=== PATIENT | female | born 1995 | race Caucasian/White ===

== ENCOUNTER 2016-10-14 13:41 | Emergency (ER) | payer SELFPAY ==
[2016-10-14 13:47] VITALS: BP 103/60; BMI 23.6
[2016-10-14 15:34] LABS: BILIRUBIN,URINE NEGATIVE (NEGATIVE); BLOOD/HEMOGLOBIN,URINE NEGATIVE (NEGATIVE); GLUCOSE, URINE NEGATIVE (NEGATIVE); KETONES,URINE NEGATIVE (NEGATIVE); LEUKOCYTE ESTERASE ,URINE 3+ (NEGATIVE); NITRITES,URINE NEGATIVE (NEGATIVE); PROTEIN,URINE NEGATIVE (NEGATIVE); UROBILINOGEN,URINE NORMAL (NORMAL)
[2016-10-14 15:38] LABS: APPEARANCE,URINE HAZY (CLEAR); BACTERIA,URINE TRACE /HPF (NEGATIVE); COLOR,URINE YELLOW (YELLOW); RBC,URINE 0-2 /HPF (NEGATIVE); SQUAMOUS EPITHELIAL CELL,UR FEW /HPF (NEGATIVE)
--- NOTE | 2016-10-14 16:07 | DR.GENAD ---
HPI - PCP Primary Care Physician: NFD - Complaint/Symptoms Chief Complaint Doctors Comments: Patient complains or right lower abdominal pressure for the past 24 hours with the pain worst when she raise her right leg. states onset of pain when she was riding the bus. She just moved her and she does not have a local doctor. states she is 15 weeks and this is her third . she denies dysuria or hematuria. She denies vaginal discharge or bleeding. she denies any recent trauma. states she only took her vitamins and has not had anything for pain. Chief Complaint:: PT C/O RLQ PAIN THAT STARTED YESTERDAY. PT IS NOTED TO BE 15.5 WKS . PT STATES SHE JUST MOVED DOWN HERE AND DOES NOT HAVE A OBGYN OF NOW. - Source History Provided: Patient - Mode of Arrival Mode of Arrival: Ambulatory - Timing Onset of Chief Complaint: 10/13/16 PMH - PMH Past Medical History: Yes Past Medical History: Depression Past Medical History Comment: HIGH RISH PREGNANCIES Past Surgical History: Yes Past Surgical History Comment: DNC - Family History History of Family Medical Conditions: No - Social History Does patient currently use any type of tobacco product: Yes Have you used tobacco products in the last 12 months: Yes Type of Tobacco Use: Cigarettes Does any household member use tobacco: Yes Alcohol Use: None Do you use any recreational Drugs:: No Lives With: Family Lives Where: Home - infectious screening In the last 2 months have you had wt loss of >10#?: NO Have you had fever, night sweats or hemotysis?: No Have you traveled outside the country in the last 6 months?: No Isolation: Standard ROS - Review of Systems Constitutional: No Symptoms Reported. negative: See HPI, Chills, Diaphoresis, Fever, Malaise, Weakness, Irritable, Fatigue, Loss of Appetite, Other Eyes: No Symptoms Reported ENTM: No Symptoms Reported. negative: See HPI, Ear Pain, Ear Discharge, Pulling on Ears, Hearing Loss, Nose Pain, Nose Discharge, Epistaxis, Nose Congestion, Mouth Pain, Mouth Swelling, Loose Teeth, Drooling, Throat Pain, Throat Swelling, Ear Foreign Body Respiratoy: No Symptoms Reported. negative: See HPI, Productive Cough, Non- Productive Cough, Moist Cough, Dry Cough, Hacking Cough, Barking Cough, Brassy Cough, Orthopnea, Short of Breath, Stridor, Wheezing, Hemoptysis, Other Cardiovascular: No Symptoms Reported. negative: See HPI, Chest Pain, Edema, Palpitations, Syncope, Cyanosis, Skin Mottling, Other Gastrointestinal/Abdominal: No Symptoms Reported, Abdominal Pain. negative: See HPI, Constipation, Diarrhea, Nausea, Vomiting, Food Intolerance, Other Genitourinary: No Symptoms Reported. negative: See HPI, Discharge, Dysuria, Frequency, Hematuria, Pain, Bleeding, Other Neurological: No Symptoms Reported Musculoskeletal: No Symptoms Reported Integumentary: No Symptoms Reported Hematologic/Lymphatic: No Symptoms Reported Endocrine: No Symptoms Reported Psychiatric: No Symptoms Reported PE - Vital Signs Vitals: Temperature 98.2 F Pulse Rate 82 Respiratory Rate 20 Blood Pressure 103/60 O2 Sat by Pulse Oximetry 98 - General Limitations: No Limitations General Appearance: Alert, In No Apparent Distress - Head Head Exam: Normal Inspection, Atraumatic, Normocephalic - Eyes Eye exam: Normal Appearance, PERRL, EOMI. negative: Scleral Icterus, Conjunctival Injection, Nystagmus, Miosis, Mydrasis, Periorbital Swelling, Periorbital Tenderness, Other - ENT ENT Exam: Normal Exam, Normal Oropharynx, Normal External Ear Exam, Mucous Membranes Moist, TM's Normal Bilaterally External Ear Exam: Normal External Inspection TM/Canal Exam: Bilateral Normal Nose Exam: Normal Nose Exam Mouth Exam: Normal Inspection Throat Exam: Normal Inspection - Neck Neck Exam: Normal Inspection, Full ROM, Trachea Midline. negative: Tenderness, Meningismus, Lymphadenopathy, Thyromegaly, Other - Chest Chest Inspection: Normal Inspection, Symmetric Chest Wall Rise. negative: Tenderness, Rash, Abscess, Other - Respiratory Respiratory Exam: Normal Lung Sounds Bilat Respiratory Exam: Bilateral Clear to Auscultation - Cardiovascular Cardiovascular Exam: Regular Rate, Normal Rhythm, Normal Heart Sounds. negative : Bradycardia, Tachycardia, Irregular Rhythm, Systolic Murmur, Diastolic Murmur , Rubs, Gallop, Clicks, JVD, +S1, +S2, +S3, +S4, Other - Abdominal Exam Abdominal Exam: Normal Inspection, Normal Bowel Sounds, Soft. negative: Distention, Tenderness, Guarding, Rebound, Rigidity, Dimnished Bowel Sounds, Hyperactive Bowel Sounds, Hypoactive Bowel Sounds, Organomegaly, Trauma, Incision, Ascites, Mass, Bruit, Pulsatile Mass, Hernia, Other Abdominal Tenderness: negative: RUQ, RLQ, LUQ, LLQ, Epigastrium, Suprapubic, Diffuse, Mild, Moderate, Severe, Other - Extremities Extremities Exam: Normal Inspection, Full ROM, Normal Capillary Refill. negative: Tenderness, Edema, Joint Swelling, Calf Tenderness, Other - Back Back Exam: Normal Inspection, Full ROM - Neurologic Neurological Exam: Alert, Oriented X3, CN II-XII Intact, Normal Gait, Reflexes Normal - Psychiatric Psychiatric Exam: Normal Affect, Normal Mood. negative: Depressed, Agitated, Anxious, Flat Affect, Manic, Homicidal Ideation, Suicidal Ideation, Other - Skin Skin Exam: Warm, Dry, Intact, Normal Color. negative: Rash, Cyanosis, Diaphoresis, Erythema, Pallor, Mottled, Other ROR - Labs Reviewed Laboratory Results Reviewed?: Yes (all labs results reviewed and discussed with patient) Laboratory: Specimen Type Clean catch urine 10/14/16 15:24 Urine Color Yellow (YELLOW) 10/14/16 15:24 Urine Appearance Hazy (CLEAR) 10/14/16 15:24 Urine pH 7.0 (5.0 - 8.0) 10/14/16 15:24 Ur Specific [place] 1.010 (1.000-1.030) 10/14/16 15:24 Urine Protein Negative (NEGATIVE) 10/14/16 15:24 Urine Glucose (UA) Negative (NEGATIVE) 10/14/16 15:24 Urine Ketones Negative (NEGATIVE) 10/14/16 15:24 Urine Occult Blood Negative (NEGATIVE) 10/14/16 15:24 Urine Nitrite Negative (NEGATIVE) 10/14/16 15:24 Urine Bilirubin Negative (NEGATIVE) 10/14/16 15:24 Urine Urobilinogen Normal (NORMAL) 10/14/16 15:24 Ur Leukocyte Esterase 3+ (NEGATIVE) 10/14/16 15:24 Urine RBC 0-2 /HPF (NEGATIVE) 10/14/16 15:24 Urine WBC 6-10 /HPF (NEGATIVE) 10/14/16 15:24 Ur Squamous Epith Cells Few /HPF (NEGATIVE) 10/14/16 15:24 Urine Bacteria Trace /HPF (NEGATIVE) 10/14/16 15:24 Ur Culture Indicated? No/not indicated 10/14/16 15:24 - Diagnosis Discharge Problem: Abdominal pain during , Urinary tract infection, Myalgia - Discharge Plan Disposition: HOME, SELF-CARE Condition: Stable Prescriptions: Amoxicillin 500 mg PO TID #30 cap - Follow ups/Referrals Follow ups/Referrals: NFD,None [Primary Care Provider] - 3 days KIMBERLY CEVALLOS [STAFF PHYSICIAN] - 3 days - Instructions Instructions: Urinary Tract Infection, Adult, and Urinary Tract Infection, Abdominal Pain During , [id number]
[2016-10-14] MEDS ORDERED: TYLENOL 500 MG TAB EXTRA STRENGTH PO STA (16:23)
[2016-10-14] MEDS ORDERED: AUGMENTIN 500 MG/125 MG TAB PO ONE ×2 (16:24→16:46)
[2016-10-14] MEDS ORDERED: TYLENOL 500 MG TAB EXTRA STRENGTH PO ONE (16:46)
== END 2016-10-14 16:51 | disposition home or self-care (01) ==
LOC: ER 14:11
DX: R10.31 Right lower quadrant pain (principal); Z3A.15 15 weeks gestation of pregnancy; N39.0 Urinary tract infection, site not specified; M79.1 Myalgia
CPT/HCPCS: 81001; 99283; 99284

== ENCOUNTER → 2016-11-17 | Outpatient (CLI) | payer OTHER ==
--- NOTE | 2016-11-20 08:55 | US ---
HISTORY: age Study: OB ultrasound greater than 14 weeks Comparison: None Technique: Multiple grayscale and color flow Doppler images of the pelvis were obtained with focused evaluation of the fetus. Findings: A viable single intrauterine is identified with heart tones of 146 beats per minute. A cephalic presentation is observed with a anterior and fundal placenta. Normal amniotic fluid volu me is observed . Evaluation of the anatomy including the stomach, , urinary bladder, and four-c hamber heart are unremarkable. The kidneys are not well visualized. The extremities and spine are nor mal in their sonographic appearance. A three-vessel cord is observed. There is questionable hydroce phalus which is difficult to further characterize due to the positioning of the fetus. Value Estimated Gestational Age BPD 47.7 mm 20 weeks 3 days HC 179.4 mm 20 weeks 3 days AC 149mm 20 weeks 2 days FL 32 mm 20 weeks 2 days IMPRESSION: Single viable intrauterine with an average ultrasound age of 20 weeks 3 days correspond to an estimated date of delivery of 04/03/2017. Slightly limited exam due to the fetus positioning with questionable hydrocephalus. Recommend a follo w-up ultrasound for further characterization of the cranium. Reported By:
== END ==
LOC: RAD 11:22
PROVIDERS: ATTEND Obstetrics & Gynecology Obstetrics
DX: Z34.92 Encounter for supervision of normal pregnancy, unspecified, second trimester (principal); Z3A.20 20 weeks gestation of pregnancy

== ENCOUNTER 2016-11-30 10:38 | Emergency (ER) | payer OTHER ==
[2016-11-30 10:42] VITALS: BP 101/61; BMI 25.7
--- NOTE | 2016-11-30 11:16 | DR.EXTPAIN ---
HPI - Time seen Time seen: 11:15 - PCP Primary Care Physician: JEMAL - HPI Comment HPI Comment: PAIN WITH MOVEMENT OF LLE. BEAR WEIGHT WITH DISCOMFORT. - Complaint/Symptoms Chief Complaint Doctor Comments: LEFT HIP PAIN, INJURY YESTERDAY PLAYING BASKET BALL. PAIN SEVERE IN LEFT GROIN AREA. NO VAGINAL BLEEDING. MOM HAVE CONTINUE TO FEEL MOVEMENT. Chief Complaint:: PT. STATES SHE WAS PLAYING BASKETBALL YESTERDAY AND HURT HER LEFT HIP. PT. C/O PAIN SINCE THEN. PT. IS 22 WEEKS . . EDC: 04/01/17 - Nurses notes reviewed Nurses Notes Review: Yes - Source History Provided: Patient - Mode of arrival Mode of Arrival: Ambulatory - Timing Onset of Chief Complaint: 11/29/16 - Context History of: None - Associated signs and symptoms Associated Signs and Symptoms: Pain PMH - PMH Past Medical History: No Past Medical History: Depression Past Surgical History: No Surgical History: No History - Family History History of Family Medical Conditions: No - Social History Does patient currently use any type of tobacco product: Yes Have you used tobacco products in the last 12 months: Yes Type of Tobacco Use: Cigarettes Does any household member use tobacco: Yes Alcohol Use: None Do you use any recreational Drugs:: No Lives With: Family, Significant Other Lives Where: Home - infectious screening In the last 2 months have you had wt loss of >10#?: NO Have you had fever, night sweats or hemotysis?: No Have you traveled outside the country in the last 6 months?: No Isolation: Standard ROS - Review of Systems Constitutional: No Symptoms Reported Eyes: No Symptoms Reported ENTM: No Symptoms Reported Respiratoy: No Symptoms Reported Cardiovascular: No Symptoms Reported Gastrointestinal/Abdominal: No Symptoms Reported Genitourinary: No Symptoms Reported Neurological: No Symptoms Reported Musculoskeletal: Left, Leg (PAIN LT HIP), Other (LT GROIN PAIN) Integumentary: No Symptoms Reported Hematologic/Lymphatic: No Symptoms Reported Endocrine: No Symptoms Reported All Other Systems: Reviewed and Negative PE - Vital Signs Vitals: Temperature 98.0 F Pulse Rate 95 Respiratory Rate 17 Blood Pressure 101/61 O2 Sat by Pulse Oximetry 98 - General Limitations: No Limitations General Appearance: Alert - Head Head Exam: Normal Inspection - Eyes Eye exam: Normal Appearance - ENT ENT Exam: Normal External Ear Exam - Neck Neck Exam: Normal Inspection - Chest Chest Inspection: Symmetric Chest Wall Rise - Respiratory Respiratory Exam: Normal Lung Sounds Bilat Respiratory Exam: Bilateral Clear to Auscultation - Cardiovascular Cardiovascular Exam: Regular Rate, Normal Rhythm, Normal Heart Sounds - Abdominal Exam Abdominal Exam: Normal Bowel Sounds, Soft, Tenderness Abdominal Tenderness: Other (LT GROIN) - Extremities Extremities Exam: Tenderness (TENDER LT HIP AND GROIN) - Lower Extremities Neurovascular/Tendon Exam: Normal Capillary Refill Gait Exam: Observed & Limited by Pain - Back Back Exam: Normal Inspection - Neurological Neurological Exam: Alert, Oriented X3 - Psychiatric Psychiatric Exam: Normal Affect, Normal Mood - Skin Skin Exam: Normal Color MDM - Differential Diagnosis Differential Diagnosis: Contusion, Sprain (PLACENTA INJURY) Course - Treatment Treatment: SEE ORDERS. - Education/Counseling Education/Counseling: Patient, Family, Education Educated On: Diagnosis ROR - XRAY XRAY Interpreted by: Radiologist XRAY Findings: REPORT DISCUSS WITH PATIENT. - Diagnosis Discharge Problem: Left hip pain - Discharge Plan Disposition: 01 HOME, SELF-CARE Condition: Stable Prescriptions: Acetaminophen [Tylenol 325 mg Tab] 650 mg PO Q4H PRN #30 tab PRN Reason: Mild Pain - Follow ups/Referrals Follow ups/Referrals: MARY JO JOAQUIN [Primary Care Provider] - 12/01/16 - Instructions Instructions: Musculoskeletal Pain Additional Instructions: RETURN TO ED IF WORSE.
--- NOTE | 2016-11-30 12:54 | US ---
HISTORY: Pain, Study: OB ultrasound greater than 14 weeks Comparison: 11/17/2016 Technique: Multiple grayscale and color flow Doppler images of the pelvis were obtained with focused evaluation of the fetus. Findings: A viable single intrauterine is identified with heart tones of 159 beats per minute. A breech presentation is observed with a anterior and fundal placenta. No evidence of hydrocephalus is seen on the examination today. Normal amniotic fluid volume is observed . Value Estimated Gestational Age BPD 48 mm 20 weeks 4 days HC 185.1 mm 20 weeks 6 days AC 170 mm 22 weeks 0 days FL 36.6 mm 21 weeks 4 days The estimated weight is 442 g, which is within the 66 percentile. IMPRESSION: A viable single intrauterine with an average ultrasound age of 21 weeks 2 days correspond t o an estimated date of delivery of 04/10/2017.. No evidence of hydrocephalus is seen. Reported By:
[2016-11-30] MEDS ORDERED: TYLENOL 325 MG TAB PO ONE ×2 (13:13→13:19)
== END 2016-11-30 13:25 | disposition home or self-care (01) ==
LOC: ER 10:44
DX: M25.552 Pain in left hip (principal); Z3A.21 21 weeks gestation of pregnancy
CPT/HCPCS: 76815; 99283; 99284

== ENCOUNTER 2017-02-03 14:16 | Emergency (ER) | payer MEDICAID, OTHER ==
[2017-02-03 14:34] VITALS: BP 119/59; BMI 27.6
--- NOTE | 2017-02-03 14:47 | DR.GENAD ---
HPI - PCP Primary Care Physician: JEMAL - HPI Comment HPI Comment: HISTORY BELOW. - Complaint/Symptoms Chief Complaint Doctors Comments: COUGH, COLD AND CONGESTION TIMES 3 DAYS. PAIN UNDER LT RIB WELL. NO FEVER. EXPOSE TO PATIENT WITH STREP INFECTION. PATIENT IS 31 WEEKS . Chief Complaint:: PT C/O COUGHING AND LT RIB PAIN PT STATE THESE SX HAS BEEN GOING ON FOR 3 DAYS. PT STATES SHE HAS BEEN AROUND SOMEONE WITH STREP THROAT. PT IS A 31 6/7 WEEK OB UNDER THE CARE OF DR JOAQUIN. - Nurses notes reviewed Nurses Notes Review: Yes - Source History Provided: Patient - Mode of Arrival Mode of Arrival: Ambulatory - Timing Onset of Chief Complaint: 01/31/17 Came on: Suddenly - Duration Duration: Constant Duration: Days - Severity Severity: Moderate PMH - PMH Past Medical History: Yes Past Medical History: Depression Past Surgical History: No Surgical History: No History - Family History History of Family Medical Conditions: No - Social History Does patient currently use any type of tobacco product: Yes Have you used tobacco products in the last 12 months: Yes Type of Tobacco Use: Cigarettes Does any household member use tobacco: Yes Alcohol Use: None Do you use any recreational Drugs:: No Lives With: Family Lives Where: Home - infectious screening In the last 2 months have you had wt loss of >10#?: NO Have you had fever, night sweats or hemotysis?: No Have you traveled outside the country in the last 6 months?: No Isolation: Standard ROS - Review of Systems Constitutional: No Symptoms Reported Eyes: No Symptoms Reported ENTM: Nose Discharge, Nose Congestion, Throat Pain. negative: Ear Pain Respiratoy: Productive Cough. negative: Short of Breath, Wheezing, Hemoptysis Cardiovascular: No Symptoms Reported Gastrointestinal/Abdominal: No Symptoms Reported Genitourinary: No Symptoms Reported Neurological: No Symptoms Reported Musculoskeletal: No Symptoms Reported Integumentary: No Symptoms Reported Hematologic/Lymphatic: No Symptoms Reported Endocrine: No Symptoms Reported All Other Systems: Reviewed and Negative PE - Vital Signs Vitals: Temperature 97.8 F Pulse Rate 82 Respiratory Rate 18 Blood Pressure 119/59 O2 Sat by Pulse Oximetry 97 - General Limitations: No Limitations General Appearance: Alert - Head Head Exam: Normal Inspection - Eyes Eye exam: Normal Appearance - ENT ENT Exam: Normal External Ear Exam External Ear Exam: Normal External Inspection TM/Canal Exam: Bilateral Normal Nose Exam: Normal Nose Exam Mouth Exam: Normal Inspection Throat Exam: Normal Inspection - Neck Neck Exam: Trachea Midline - Chest Chest Inspection: Symmetric Chest Wall Rise - Respiratory Respiratory Exam: Normal Lung Sounds Bilat Respiratory Exam: Bilateral Clear to Auscultation - Cardiovascular Cardiovascular Exam: Regular Rate, Normal Rhythm, Normal Heart Sounds - Abdominal Exam Abdominal Exam: Normal Bowel Sounds, Soft, Other (FULL TERM PREDNANCY.). negative: Tenderness - Extremities Extremities Exam: Normal Inspection - Back Back Exam: Normal Inspection - Neurologic Neurological Exam: Alert, Oriented X3 - Psychiatric Psychiatric Exam: Normal Affect, Normal Mood - Skin Skin Exam: Normal Color MDM - Additional Information Additional Information Obtained From: Family - Differential Diagnosis Differential Diagnosis: BRONCHITIS, STREP INFECTION, SINUSITIS Course - Treatment Treatment: SEE ORDERS. MONITOR WHILE IN ED. NORMAL. - Education/Counseling Education/Counseling: Patient, Family, Education Educated On: Diagnosis, Needs for Follow Up ROR - Labs Reviewed Laboratory Results Reviewed?: Yes Laboratory: 02/03/17 15:02 Throat Throat Culture - Preliminary Influenza Type A (PCR) Negative (NEGATIVE) 02/03/17 15:30 Influenza Type B (PCR) Negative (NEGATIVE) 02/03/17 15:30 Streptococcus Screen Negative (NEGATIVE) 02/03/17 15:02 - Diagnosis Discharge Problem: Cough, Rib contusion - Discharge Plan Disposition: 01 HOME, SELF-CARE Condition: Stable - Follow ups/Referrals Follow ups/Referrals: MARY JO JOAQUIN [Primary Care Provider] - 3 days - Instructions Instructions: Cough, Adult, [id number], Rib Contusion Additional Instructions: RETURN TO ED IF WORSE. CONTINUE WITH COUGH MED AT HOME.
== END 2017-02-03 16:59 | disposition home or self-care (01) ==
LOC: ER 14:28
DX: S20.219A Contusion of unspecified front wall of thorax, initial encounter (principal); R05 Cough; Z3A.31 31 weeks gestation of pregnancy; Y33.XXXA Other specified events, undetermined intent, initial encounter; Y92.9 Unspecified place or not applicable
CPT/HCPCS: 87070; 87502; 87880; 96372; 99282; 99283

== ENCOUNTER 2017-03-02 22:29 | Emergency (ER) | payer OTHER ==
[2017-03-02 22:38] VITALS: BP 115/61; BMI 27.6
[2017-03-02 22:58] LABS: BILIRUBIN,URINE NEGATIVE (NEGATIVE); BLOOD/HEMOGLOBIN,URINE NEGATIVE (NEGATIVE); GLUCOSE, URINE NEGATIVE (NEGATIVE); KETONES,URINE NEGATIVE (NEGATIVE); LEUKOCYTE ESTERASE ,URINE NEGATIVE (NEGATIVE); NITRITES,URINE NEGATIVE (NEGATIVE); PROTEIN,URINE NEGATIVE (NEGATIVE); UROBILINOGEN,URINE NORMAL (NORMAL)
[2017-03-02 23:24] LABS: APPEARANCE,URINE CLEAR (CLEAR); COLOR,URINE YELLOW (YELLOW)
[2017-03-02 23:25] LABS: BACTERIA,URINE NEGATIVE /HPF (NEGATIVE); RBC,URINE 0-3 /HPF (NEGATIVE); SQUAMOUS EPITHELIAL CELL,UR RARE /HPF (NEGATIVE)
== END 2017-03-02 23:40 | disposition home or self-care (01) ==
LOC: ER 22:29
DX: R10.84 Generalized abdominal pain (principal); Z3A.35 35 weeks gestation of pregnancy
CPT/HCPCS: 81001; 99284

== ENCOUNTER 2017-03-26 06:29 | Inpatient (IN) | payer OTHER ==
[~2017-03-26 06:29] MED LIST: D5LR 1L W PITOCIN 10 UNITS/L 10 UNITS/1,000 ML BAG IV PRN; NUBAIN INJ 200 MG VIAL MULTIDOSE IVP PRN; PITOCIN IVP ONE
[2017-03-26] MEDS ORDERED: D5 1/2 NS 1L W PITOCIN 20 UNITS/L 20 UNITS/1,000 ML BAG IV ONE (06:34)
[2017-03-26] MEDS: D5 1/2 NS 1000 ML 1,000 ML IV SCH (06:45)
[2017-03-26 07:06] LABS: BASOPHILS % (AUTO) 0.4 % (0.2-1.0); EOSINOPHILS # (AUTO) 0.1 x10^3/uL (0.0-0.2); HEMATOCRIT 36.6 % (36.0-47.0); HEMOGLOBIN 13.1 g/dL (12.0-16.0); LYMPHOCYTES # (AUTO) 1.7 X10^3/uL (1.3-2.9); LYMPHOCYTES % (AUTO) 17.9 % (21.0-51.0); MEAN CORPUSCULAR HEMOGLOBIN 30.6 pg (27.0-34.0); MEAN CORPUSCULAR HGB CONC 35.7 g/dL (33.0-35.0); MEAN CORPUSCULAR VOLUME 85.7 fL (80.0-100.0); MEAN PLATELET VOLUME 7.7 fL (7.4-11.0); MONOCYTES % (AUTO) 10.6 % (0.0-13.0); NEUTROPHILS # (AUTO) 6.9 x10^3/uL (2.2-4.8); NEUTROPHILS % (AUTO) 70.1 % (42.0-75.0); PLATELET COUNT 333 X10^3/uL (150.0-450.0); RED BLOOD COUNT 4.27 X10^6/uL (3.5-5.4); RED CELL DISTRIBUTION WIDTH 12.8 % (11.6-16.5); WHITE BLOOD COUNT 9.8 X10^3/uL (3.6-10.0)
[2017-03-26 07:07] LABS: BILIRUBIN,URINE NEGATIVE (NEGATIVE); BLOOD/HEMOGLOBIN,URINE NEGATIVE (NEGATIVE); GLUCOSE, URINE NEGATIVE (NEGATIVE); KETONES,URINE NEGATIVE (NEGATIVE); LEUKOCYTE ESTERASE ,URINE 3+ (NEGATIVE); NITRITES,URINE NEGATIVE (NEGATIVE); PROTEIN,URINE NEGATIVE (NEGATIVE); UROBILINOGEN,URINE 1+ (NORMAL)
[2017-03-26 07:10] LABS: BLOOD UREA NITROGEN 6 mg/dL (7-18); CARBON DIOXIDE 25.2 mmol/L (21-32); CHLORIDE 100 mmol/L (98-107); CREATININE 0.56 mg/dL (0.55-1.02); SODIUM 136 mmol/L (136-145); eGFR BLACK RACES > 60 (>60); eGFR NON BLACK RACES > 60 (>60)
[2017-03-26 07:16] LABS: APPEARANCE,URINE SLIGHTLY HAZY (CLEAR); BACTERIA,URINE TRACE /HPF (NEGATIVE); COLOR,URINE YELLOW (YELLOW); MUCUS,URINE FEW /HPF (NEGATIVE); RBC,URINE 0 /HPF (NEGATIVE); SQUAMOUS EPITHELIAL CELL,UR MODERATE /HPF (NEGATIVE)
[2017-03-26] MEDS ORDERED: LR 1000 ML IV 1,000 ML IV ONE ×2 (09:08→09:33)
[2017-03-26] MEDS ORDERED: NAROPIN EPIDURAL 0.2% + FENTANYL 90MCG 60 ML EPI ONE (09:08)
[2017-03-26] MEDS ORDERED: NUBAIN INJ 10 ONE (09:16)
[2017-03-26] MEDS ORDERED: NAROPIN EPIDURAL 0.2% + FENTANYL 90MCG EPI SCH (10:00)
[2017-03-26] MEDS: D5 1/2 NS 1000 ML 1,000 ML with PITOCIN 20 UNITS IV SCH ×2 (11:40)
[2017-03-26] MEDS ORDERED: MOTRIN TAB 800 MG PO PRN (11:45)
[2017-03-26] MEDS ORDERED: DERMOPLAST SPRAY TOP PRN (11:45)
[2017-03-27] MEDS: D5 1/2 NS 1000 ML 1,000 ML IV SCH ×4 (00:12→19:52)
[2017-03-27] MEDS: D5 1/2 NS 1000 ML 1,000 ML with PITOCIN 20 UNITS IV SCH ×8 (00:12→19:52)
[2017-03-27 05:26] LABS: HEMOGLOBIN 12.5 g/dL (12.0-16.0)
[2017-03-28] MEDS: D5 1/2 NS 1000 ML 1,000 ML IV SCH (06:19)
[2017-03-28] MEDS: D5 1/2 NS 1000 ML 1,000 ML with PITOCIN 20 UNITS IV SCH ×2 (06:19)
[2017-03-28 13:19] VITALS: BP 109/77
== END 2017-03-28 12:30 | disposition home or self-care (01) | DRG 775 ==
LOC: LD 06:29 → MED/SURG 11:46
PROVIDERS: ADMIT Obstetrics & Gynecology Obstetrics; ATTEND Obstetrics & Gynecology Obstetrics
PROC: 10E0XZZ Delivery of Products of Conception, External Approach (ICD-10-PCS; principal; 2017-03-26)
PROC: 10907ZC Drainage of Amniotic Fluid, Therapeutic from Products of Conception, Via Natural or Artificial Opening (ICD-10-PCS; 2017-03-26)
PROC: 3E033VJ Introduction of Other Hormone into Peripheral Vein, Percutaneous Approach (ICD-10-PCS; 2017-03-26)
PROC: 00HU33Z Insertion of Infusion Device into Spinal Canal, Percutaneous Approach (ICD-10-PCS; 2017-03-26)
DX: O26.893 Other specified pregnancy related conditions, third trimester (principal); Z37.0 Single live birth; Z3A.39 39 weeks gestation of pregnancy; Z72.0 Tobacco use
CPT/HCPCS: 09167; 36415; 59409; 80048; 80307; 81001; 85014; 85018; 85025; 86592; 86850; 86900; 86901; 87086; A4222; G0434; J2300; J2590; J7042; J7120